=== PATIENT | male | born 1945 | race Caucasian/White ===

== ENCOUNTER 2016-12-20 00:20 | Day surgery (SDC) | payer MEDICARE ==
[2016-12-20] VITALS (9 sets, daily range): BP systolic 107–120; BP diastolic 58–77; PULSE 65–70; RESP 18–20; O2SAT 93–94
[~2016-12-20] VITALS: Ht 172.7 cm; Wt 111.3 kg
[~2016-12-20 00:20] MED LIST: ASPI-973 PO; CHOL10008 PO; FERR-83 PO; GEMF600T3 PO; LISI-571 PO; METO-272 PO; NITR0.4T6 SL; NITR1PAT59 TRANSDERM; OMEP20CA11 PO; UBID100C25 PO
[2016-12-20] MEDS ORDERED: 0.9% Sodium Chloride 1,000 ML IV ONE (06:23)
[2016-12-20 07:19] LABS: BASOPHILS % (AUTO) 0.2 % (0-3); EOSINOPHILS % (AUTO) 2.1 % (0-5); Mean Corpuscular Hemoglobin 33.1 pg (27.0-35.0); Mean Corpuscular Volume 91.9 fL (81-100); NEUTROPHILS % (AUTO) 50.3 % (40-74); Platelet Count 197 bil/L (150-400)
[2016-12-20] MEDS ORDERED: Heparin 1,000 Unit/mL 10 mL Inj ONE (07:59)
[2016-12-20] MEDS ORDERED: Nitroglycerin 50,000 mcg/250 mL D5W Premix IV ONE (07:59)
[2016-12-20] MEDS ORDERED: 0.9% Sodium Chloride 2,000 ML ONE (07:59)
[2016-12-20] MEDS ORDERED: Heparin 1,000 Units/500 mL NS Premix IV ONE ×2 (07:59→08:46)
[2016-12-20] MEDS ORDERED: fentaNYL-PF 50 mCg/mL 2 mL Inj ONE ×2 (08:25→09:43)
[2016-12-20] MEDS ORDERED: Atropine 1 mg/10 mL (Code) Syringe ONE (08:26)
[2016-12-20] MEDS ORDERED: Phenylephrine/NS-PF 100 mCg/mL 5 mL Syringe IVPUSH ONE (08:26)
--- NOTE | 2016-12-20 20:05 | CS94 ---
[address] [address] DIAGNOSTIC CARDIAC CATHETERIZATION PATIENT: YANNI SOTO : 1945 MR#: [id number] ADMIT: 12/20/2016 JOB ID: [id number] SERVICE DATE: 12/20/2016 PROCEDURES PERFORMED: Coronary angiography. INDICATIONS: A 71-year-old man with 2-3 weeks of accelerating anginal symptoms. He presents for further assessment by cardiac catheterization. DESCRIPTION OF PROCEDURE: Informed consent was obtained. The patient was brought to catheterization laboratory. Bilateral groins were prepped and draped in sterile fashion. The area of the right femoral artery was anesthetized with lidocaine using modified Seldinger technique and a micropuncture kit. Access was obtained and a 5-Czech sheath was advanced. Next, a 5-Czech JL 3.5 catheter was advanced over a wire and used to cannulate the left coronary artery and angiography was obtained. This catheter was removed and a 5-Czech JR-4 catheter was advanced over a wire and used to cannulate the right coronary and angiographic views obtained. The case was ended. Angiography of the right femoral access site was obtained prior to achieving hemostasis with manual compression. No complications. FINDINGS: CORONARIES: 1. The left main was not selectively cannulated given concerns about damping appreciated on a prior cardiac catheterization. On evaluation of the left main, there appears to be mid shaft stenosis estimated in the range of 50%. This is a left-dominant system. 2. Circumflex artery: This is a large vessel that has no significant obstructive disease appreciated. 3. Left anterior descending artery. This vessel is rather small in caliber, appearing in the range of 2-2.25 mm and appears to have a high-grade mid vessel stenosis estimated in the range of 98% with ANDREA II flow distally. 4. Right coronary artery: This is a nondominant vessel, has no obstructive disease and appears to be supplying some collaterals to the left anterior descending artery. HEMODYNAMICS: Please see labor relations officer report. MEDICATIONS DURING THE CASE: Please see labor relations officer report. IMPRESSION: 1. 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 2. At least 50% left main stenosis in this patient with a left dominant system. No evidence for significant obstructive disease appreciated in the circumflex artery. 3. Given the left main disease in this patient with a left-dominant system and significant left anterior descending artery stenosis, plans will be made for transfer for consideration of bypass surgery.
[2017-01-16] MEDS ORDERED: LIP40 PO (15:18)
[2017-01-16] MEDS ORDERED: AMIO200T PO (15:18)
[2017-01-16] MEDS ORDERED: POLY17PO6 PO (15:26)
[2017-01-16] MEDS ORDERED: WARF5TAB7 PO (15:26)
[2017-01-16] MEDS ORDERED: SENN-133 PO (15:26)
[2017-01-16] MEDS ORDERED: FURO40TA4 PO (15:26)
[2017-01-16] MEDS ORDERED: DOCU250C2 PO (15:26)
[2017-01-16] MEDS ORDERED: HYDR-3090 PO (15:26)
[2017-01-16] MEDS ORDERED: ERTA1VIA2 IV (15:26)
[2017-01-17] MEDS ORDERED: POTA20TA16 PO (18:49)
== END 2016-12-20 23:59 | disposition short-term general hospital (02) ==
LOC: SOUO 00:20
PROVIDERS: ATTEND Internal Medicine
DX: I25.119 Atherosclerotic heart disease of native coronary artery with unspecified angina pectoris (principal); E78.5 Hyperlipidemia, unspecified; I10 Essential (primary) hypertension; Z98.61 Coronary angioplasty status; E66.9 Obesity, unspecified; Z68.37 Body mass index [BMI] 37.0-37.9, adult
CPT/HCPCS: 36415; 80048; 85025; 93005; 93454; 99152; 99153; C1769; J1200; J1644; J2250; J3010; J7030; Q9967